=== PATIENT | male | born 1995 | race Caucasian/White ===

== ENCOUNTER 2020-11-07 17:52 | Emergency (ER) | payer MEDICAID ==
[~2020-11-07] VITALS: Ht 182.9 cm; Wt 82.0 kg
[2020-11-07] MEDS ORDERED: MORPHINE SULFATE 4 MG/ML CPJ (NOT FOR IM USE) IV STA (19:18)
[2020-11-07] MEDS ORDERED: SODIUM CHLORIDE 0.9% 1,000 ML IV ONE (19:30)
[2020-11-07] MEDS ORDERED: HYDR-4350 MT (20:48)
[2020-11-07 22:30] VITALS: BP 145/94
[2020-11-08] MEDS ORDERED: HYDR-4009 MT (12:45)
== END 2020-11-07 23:21 | disposition home or self-care (01) ==
LOC: ER 17:52
DX: S43.102A Unspecified dislocation of left acromioclavicular joint, initial encounter (principal); V49.49XA Driver injured in collision with other motor vehicles in traffic accident, initial encounter; Y93.89 Activity, other specified; Y92.89 Other specified places as the place of occurrence of the external cause; Y99.8 Other external cause status
CPT/HCPCS: 70450; 71045; 73030; 96361; 96374; 99284; J2270; J7030

== ENCOUNTER 2020-11-08 12:28 | Emergency (ER) | payer MEDICAID ==
[~2020-11-08] VITALS: Ht 172.7 cm; Wt 88.0 kg
[~2020-11-08 12:28] MED LIST: HYDR-4350 MT
[2020-11-08 12:30] VITALS: BP 144/92
[2020-11-08] MEDS ORDERED: HYDR-4009 MT (12:45)
== END 2020-11-08 12:51 | disposition home or self-care (01) ==
LOC: ER 12:28
DX: Z76.0 Encounter for issue of repeat prescription (principal)
CPT/HCPCS: 99283